=== PATIENT | male | born 1980 | race Caucasian/White ===

== ENCOUNTER 2019-08-20 22:52 | Emergency (ER) | payer SELFPAY ==
[~2019-08-20] VITALS: Ht 172.7 cm; Wt 81.6 kg
[2019-08-20 22:55] VITALS: BP 146/90
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
--- NOTE | 2019-08-20 23:10 | NUR ---
SEEN AND EXAMINED BY VIJAY.
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
[2019-08-20 23:17] VITALS: BP 146/90
--- NOTE | 2019-08-20 23:17 | NUR ---
PATIENT BIB [place] [employer]. PATIENT EXAMINED BY DR. linton. PATIENT MEDICALLY CLEARED AND RELEASED IN CUSTODY IN STABLE CONDITION. ORIGINAL PRE-BOOK FORM GIVEN TO OFFICER hodan arnett [id number].
== END 2019-08-20 23:17 ==
LOC: MED 22:52
DX: F10.10 Alcohol abuse, uncomplicated (principal); Z02.89 Encounter for other administrative examinations; V89.2XXA Person injured in unspecified motor-vehicle accident, traffic, initial encounter; Y93.89 Activity, other specified; Y92.89 Other specified places as the place of occurrence of the external cause; Y99.8 Other external cause status
CPT/HCPCS: 99283